=== PATIENT | female | born 1965 | race Caucasian/White ===

== ENCOUNTER 2016-04-04 14:39 | Emergency (ER) | payer OTHER ==
--- NOTE | 2016-04-04 16:21 | DIAGNOSTIC IMAGING REPORT ---
PROCEDURE: XR FOOT 3 VIEWS - LEFT INDICATION: PAIN TECHNIQUE: Three views. COMPARISON: None. FINDINGS: Osseous structures and joint spaces are normal. IMPRESSION: 1. Normal left foot.
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
--- NOTE | 2016-04-04 16:28 | ED ORDER SUMMARY ---
..... Patient: SANAM DONALDSON OrderSheet [facility] VisitID: [id number] [address] [place] [address] 51y, F Registration Date/Time: 04/04/2016 ORDER SHEET Weight: 63.5 kg (stated) Allergies: Naproxen GENERAL ORDERS: Foot 3V Left Urgent (15:32 04/04/2016 HBivens A.R.N.P.) ([facility] 15:35 LTapper) MEDICATION ORDERS: Ultram PO 50 mg (NOW) (16:56 04/04/2016 LWhalen R.N. verbal order read back to HBivens A.R.N.P.) (16:57 LWhalen R.N.) IV FLUIDS: ORDER SHEET NOTES: [Electronically signed by Kylah Ramos R.N. (18:40 04/04/2016)] [Electronically signed by Leticia Pink A.R.N.P. (18:50 04/04/2016)] [Electronically locked/signed by Kylah Ramos R.N. (18:40 04/04/2016)]
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
--- NOTE | 2016-04-04 16:28 | ED ORDER SUMMARY ---
..... Patient: SANAM DONALDSON OrderSheet [facility] VisitID: [id number] [address] [place] [address] 51y, F Registration Date/Time: 04/04/2016 ORDER SHEET Weight: 63.5 kg (stated) Allergies: Naproxen GENERAL ORDERS: Foot 3V Left Urgent (15:32 04/04/2016 HBivens A.R.N.P.) ([facility] 15:35 LTapper) MEDICATION ORDERS: Ultram PO 50 mg (NOW) (16:56 04/04/2016 LWhalen R.N. verbal order read back to HBivens A.R.N.P.) (16:57 LWhalen R.N.) IV FLUIDS: ORDER SHEET NOTES: [Electronically signed by Kylah Ramos R.N. (18:40 04/04/2016)] [Electronically signed by Leticia Pink A.R.N.P. (18:50 04/04/2016)] [Electronically locked/signed by Kylah Ramos R.N. (18:40 04/04/2016)]
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
--- NOTE | 2016-04-04 18:51 | ED MED RECONCILIATION SUMMARY ---
Patient: SANAM DONALDSON Medication Reconciliation Report [facility] VisitID: [id number] [address] [place] [address] 51y, F Registration Date/Time: 04/04/2016 Weight: 63.5 kg Height/Length: 65 in. BMI: 23.3 ALLERGIES: Naproxen The patient's Home Medications are listed below: NONE. The source(s) of the original Home Medication information: Not obtained. The following Medications were given to the patient in the Emergency Department: Ultram [PO] PO 50 mg, administered: 04/04/2016 4:43:00 PM The following Medications were prescribed to the patient: Cephalexin 500 mg: take 1 capsule orally every 8 hours for 10 days. No refill. -- Leticia Pink, Coy.R.N.P. Ultram 50 mg tablets: take 1-2 orally every 6 hours as needed for pain. Dispense twenty (20). No refills. Substitution is permissible. -- Leticia Pink A.R.N.P.
--- NOTE | 2016-04-04 18:51 | ED MED RECONCILIATION SUMMARY ---
Patient: SANAM DONALDSON Medication Reconciliation Report [facility] VisitID: [id number] [address] [place] [address] 51y, F Registration Date/Time: 04/04/2016 Weight: 63.5 kg Height/Length: 65 in. BMI: 23.3 ALLERGIES: Naproxen The patient's Home Medications are listed below: NONE. The source(s) of the original Home Medication information: Not obtained. The following Medications were given to the patient in the Emergency Department: Ultram [PO] PO 50 mg, administered: 04/04/2016 4:43:00 PM The following Medications were prescribed to the patient: Cephalexin 500 mg: take 1 capsule orally every 8 hours for 10 days. No refill. -- Leticia Pink, Coy.R.N.P. Ultram 50 mg tablets: take 1-2 orally every 6 hours as needed for pain. Dispense twenty (20). No refills. Substitution is permissible. -- Leticia Pink A.R.N.P.
--- NOTE | 2016-04-04 18:51 | ED MAR SUMMARY ---
..... Medication Administration Record [facility] [address] [place] [address] Patient: SANAM DONALDSON Visit ID: [id number] 51y, F Weight: 63.5 kg Height/Length: 65 in BMI: 23.3 ALLERGIES: Naproxen Given 16:43 04/04/2016 Kylah Ramos R.N. Medication Administered: ULTRAM [PO] (TRAMADOL HCL), Dose: 50 mg Tablets PO. Medication Ordered: Ultram PO 50 mg (NOW).
--- NOTE | 2016-04-04 18:51 | ED DISCHARGE INSTRUCTIONS ---
Patient: SANAM DONALDSON General Instructions [facility] VisitID: [id number] [place] [address] 51y, F Registration Date/Time: 04/04/2016 Cellulitis of the left foot. No foreign body present. INSTRUCTIONS Warnings: GENERAL WARNINGS: Return or contact your physician immediately if your condition worsens or changes unexpectedly, if not improving as expected, or if other problems arise. Specifically return if problem worsens. Prescription Medications: Cephalexin 500 mg: take 1 capsule orally every 8 hours for 10 days. No refill. Ultram 50 mg tablets: take 1-2 orally every 6 hours as needed for pain. Dispense twenty (20). No refills. Substitution is permissible. Follow-up: Follow up with your doctor in about three days even if well. Call for an appointment. Summary of care provided to patient. Understanding of the discharge instructions verbalized by patient. ADDITIONAL INFORMATION Cellulitis You have an infection of the skin known as cellulitis. This usually starts with a scrape, cut, insect bite, blister or other opening in the skin which becomes infected. This is a serious condition. It must be watched closely to be sure the infection is not spreading. With antibiotic treatment, the size of the red area will gradually shrink in size until the skin returns to normal. This will take 7-10 days. The red area should never increase in size once the antibiotic medicine has been started. Occasionally, an infection will be resistant to one antibiotic and another one will have to be used. Home Care: 1) Limit the use of the affected part, since excess movement can cause the infection to spread. 2) If the infection is on your leg, walk as little as possible during the first few days of the treatment. Keep your leg elevated while sitting. This will reduce swelling. 3) Take all of the antibiotic medicine exactly as directed until it is gone. Be careful not to miss any doses, especially during the first seven days. Follow Up with your doctor or this facility as directed. Check the infected area daily for the warning signs listed below. Get Prompt Medical Attention if any of the following occur: -- Spreading area of redness -- Increasing swelling or pain -- Appearance of pus or drainage -- Fever over 100.4 F (38.0 C) oral, or over 101.4 F (38.6 C) rectal, after two days on antibiotics Staph Infection (MRSA) "Staph" is the short name for the common bacteria called "staphylococcus aureus". Staph bacteria are often present on the skin without causing an infection. If it gets under the skin an infection occurs. This causes redness, tenderness, swelling and sometimes fluid drainage. MRSA stands for "Methicillin-Resistant Staph Aureus". Unlike a common staph infection, MRSA bacteria are resistant to the usual antibiotics and harder to treat. Also, MRSA is more toxic than common staph bacteria. It can spread quickly throughout the body and cause a life-threatening illness. MRSA is spread to others by direct physical contact with the bacteria. MRSA can also be transmitted from items contaminated by a person who has the bacteria, such as bandages, towels, bed sheets, or sports equipment. It is not spread through the air. Once you have a MRSA skin infection, you are at risk of having it recur in the future. If MRSA infection is suspected, the doctor may take a wound culture to confirm the diagnosis. Any abscess will be drained. One or sometimes two antibiotics that work against MRSA will be prescribed. Home Care: 1) Take any antibiotics prescribed exactly as directed until they are gone. 2) Follow the same washing procedures as outlined for Household Members below. 3) Keep draining wounds covered with clean, dry bandages. Change dressings as they become soiled. 4) You and those in contact with you should wash their hands frequently with soap and warm water or use an alcohol-based hand eyewear manufacturing tech. Do this after each time you change the bandage or touch the wound. 5) Avoid sharing personal items such as towels, washcloths, razors, clothing, or uniforms. Wash soiled sheets, towels or clothes in hot water with laundry detergent. Use an automatic clothes dryer set on high to kill any remaining bacteria. 6) Remove any artificial nails and nail mohawk. 7) If you use a gym, wipe down equipment before and after each use. Treatment Of Household Members If you have been diagnosed with possible MRSA infection, those living with you are at higher risk of carrying the bacteria on their skin or in their nose, even if there is no sign of infection. Bacteria must be removed from the skin of all household members (including you) at the same time, so that it is not passed back and forth. Advise them to remove the bacteria as follows: Wash your whole body (scalp to toes) daily for five days with Hibiclens (chlorhexidine). Scrub fingernails with a brush for one minute twice a day. If any skin infections are present (boils, abscess, infected cut) these must be treated by a doctor. Washing alone will not treat a MRSA infection. Clean counter tops and children's toys; do not share personal items such as toothbrush and razors. It is okay to share glasses, plates, utensils. If antibiotic ointment was prescribed use it as directed. Follow Up with your doctor or as advised by our staff. If a wound culture was taken, call as directed in two days to obtain the results. If the culture result is positive for MRSA, tell medical personnel in the future that you were treated for this type of infection. Get Prompt Medical Attention if any of the following occur: -- Increasing redness, swelling or pain -- Red streaks in the skin around the wound -- Weakness or dizziness -- New appearance of pus or drainage from the wound -- New fever over 100.4 F (38.0 C) Cephalexin Monohydrate Oral tablet What is this medicine? CEPHALEXIN (sef a LIBRA in) is a cephalosporin antibiotic. It is used to treat certain kinds of bacterial infections It will not work for colds, flu, or other viral infections. How should I use this medicine? Take this medicine by mouth with a full glass of water. Follow the directions on the prescription label. This medicine can be taken with or without food. Take your medicine at regular intervals. Do not take your medicine more often than directed. Take all of your medicine as directed even if you think you are better. Do not skip doses or stop your medicine early. Talk to your music pastor regarding the use of this medicine in children. While this drug may be prescribed for selected conditions, precautions do apply. What side effects may I notice from receiving this medicine? Side effects that you should report to your doctor or health associate director career services as soon as possible: allergic reactions like skin rash, itching or hives, swelling of the face, lips, or tongue breathing problems pain or trouble passing urine redness, blistering, peeling or loosening of the skin, including inside the mouth severe or watery diarrhea unusually weak or tired yellowing of the eyes, skin Side effects that usually do not require medical attention (report to your doctor or health associate director career services if they continue or are bothersome): gas or heartburn genital or anal irritation headache joint or muscle pain nausea, vomiting What may interact with this medicine? probenecid some other antibiotics What if I miss a dose? If you miss a dose, take it as soon as you can. If it is almost time for your next dose, take only that dose. Do not take double or extra doses. There should be at least 4 to 6 hours between doses. Where should I keep my medicine? Keep out of the reach of children. Store at room temperature between 59 and 86 degrees F (15 and 30 degrees C). Throw away any unused medicine after the expiration date. What should I tell my health care provider before I take this medicine? They need to know if you have any of these conditions: kidney disease stomach or intestine problems, especially colitis an unusual or allergic reaction to cephalexin, other cephalosporins, penicillins, other antibiotics, medicines, foods, dyes or preservatives or trying to get breast-feeding What should I watch for while using this medicine? Tell your doctor or health associate director career services if your symptoms do not begin to improve in a few days. Do not treat diarrhea with over the counter products. Contact your doctor if you have diarrhea that lasts more than 2 days or if it is severe and watery. If you have diabetes, you may get a false-positive result for sugar in your urine. Check with your doctor or health associate director career services. Tramadol Hydrochloride Oral tablet What is this medicine? TRAMADOL (TRA ma dole) is a pain reliever. It is used to treat moderate to severe pain in adults. How should I use this medicine? Take this medicine by mouth with a full glass of water. Follow the directions on the prescription label. If the medicine upsets your stomach, take it with food or milk. Do not take more medicine than you are told to take. Talk to your music pastor regarding the use of this medicine in children. Special care may be needed. What side effects may I notice from receiving this medicine? Side effects that you should report to your doctor or health associate director career services as soon as possible: allergic reactions like skin rash, itching or hives, swelling of the face, lips, or tongue breathing difficulties, wheezing confusion itching light headedness or fainting spells redness, blistering, peeling or loosening of the skin, including inside the mouth seizures Side effects that usually do not require medical attention (report to your doctor or health associate director career services if they continue or are bothersome): constipation dizziness drowsiness headache nausea, vomiting What may interact with this medicine? Do not take this medicine with any of the following medications: MAOIs like Carbex, Eldepryl, Marplan, Nardil, and Parnate This medicine may also interact with the following medications: alcohol or medicines that contain alcohol antihistamines benzodiazepines bupropion carbamazepine or oxcarbazepine clozapine cyclobenzaprine digoxin furazolidone linezolid medicines for depression, anxiety, or psychotic disturbances medicines for migraine headache like almotriptan, eletriptan, frovatriptan, naratriptan, rizatriptan, sumatriptan, zolmitriptan medicines for pain like pentazocine, buprenorphine, butorphanol, meperidine, nalbuphine, and propoxyphene medicines for sleep muscle relaxants naltrexone phenobarbital phenothiazines like perphenazine, thioridazine, chlorpromazine, mesoridazine, fluphenazine, prochlorperazine, promazine, and trifluoperazine procarbazine warfarin What if I miss a dose? If you miss a dose, take it as soon as you can. If it is almost time for your next dose, take only that dose. Do not take double or extra doses. Where should I keep my medicine? Keep out of the reach of children. Store at room temperature between 15 and 30 degrees C (59 and 86 degrees F). Keep container tightly closed. Throw away any unused medicine after the expiration date. What should I tell my health care provider before I take this medicine? They need to know if you have any of these conditions: brain tumor depression drug abuse or addiction head injury if you frequently drink alcohol containing drinks kidney disease or trouble passing urine liver disease lung disease, asthma, or breathing problems seizures or epilepsy suicidal thoughts, plans, or attempt; a previous suicide attempt by you or a family member an unusual or allergic reaction to tramadol, codeine, other medicines, foods, dyes, or preservatives or trying to get breast-feeding What should I watch for while using this medicine? Tell your doctor or health associate director career services if your pain does not go away, if it gets worse, or if you have new or a different type of pain. You may develop tolerance to the medicine. Tolerance means that you will need a higher dose of the medicine for pain relief. Tolerance is normal and is expected if you take this medicine for a long time. Do not suddenly stop taking your medicine because you may develop a severe reaction. Your body becomes used to the medicine. This does NOT mean you are addicted. Addiction is a behavior related to getting and using a drug for a non-medical reason. If you have pain, you have a medical reason to take pain medicine. Your doctor will tell you how much medicine to take. If your doctor wants you to stop the medicine, the dose will be slowly lowered over time to avoid any side effects. You may get drowsy or dizzy. Do not drive, use machinery, or do anything that needs mental alertness until you know how this medicine affects you. Do not stand or sit up quickly, especially if you are an older patient. This reduces the risk of dizzy or fainting spells. Alcohol can increase or decrease the effects of this medicine. Avoid alcoholic drinks. You may have constipation. Try to have a bowel movement at least every 2 to 3 days. If you do not have a bowel movement for 3 days, call your doctor or health associate director career services. Your mouth may get dry. Chewing sugarless gum or sucking hard candy, and drinking plenty of water may help. Contact your doctor if the problem does not go away or is severe. You have been given the following additional information: Cellulitis MRSA Skin Infection, Suspected Or Confirmed Cephalexin Monohydrate Oral tablet Tramadol Hydrochloride Oral tablet (Electronically signed by Leticia Pink A.R.N.P. 04/04/2016 18:50)
--- NOTE | 2016-04-04 18:51 | ED DISCHARGE INSTRUCTIONS ---
Patient: SANAM DONALDSON General Instructions [facility] VisitID: [id number] [place] [address] 51y, F Registration Date/Time: 04/04/2016 Cellulitis of the left foot. No foreign body present. INSTRUCTIONS Warnings: GENERAL WARNINGS: Return or contact your physician immediately if your condition worsens or changes unexpectedly, if not improving as expected, or if other problems arise. Specifically return if problem worsens. Prescription Medications: Cephalexin 500 mg: take 1 capsule orally every 8 hours for 10 days. No refill. Ultram 50 mg tablets: take 1-2 orally every 6 hours as needed for pain. Dispense twenty (20). No refills. Substitution is permissible. Follow-up: Follow up with your doctor in about three days even if well. Call for an appointment. Summary of care provided to patient. Understanding of the discharge instructions verbalized by patient. ADDITIONAL INFORMATION Cellulitis You have an infection of the skin known as cellulitis. This usually starts with a scrape, cut, insect bite, blister or other opening in the skin which becomes infected. This is a serious condition. It must be watched closely to be sure the infection is not spreading. With antibiotic treatment, the size of the red area will gradually shrink in size until the skin returns to normal. This will take 7-10 days. The red area should never increase in size once the antibiotic medicine has been started. Occasionally, an infection will be resistant to one antibiotic and another one will have to be used. Home Care: 1) Limit the use of the affected part, since excess movement can cause the infection to spread. 2) If the infection is on your leg, walk as little as possible during the first few days of the treatment. Keep your leg elevated while sitting. This will reduce swelling. 3) Take all of the antibiotic medicine exactly as directed until it is gone. Be careful not to miss any doses, especially during the first seven days. Follow Up with your doctor or this facility as directed. Check the infected area daily for the warning signs listed below. Get Prompt Medical Attention if any of the following occur: -- Spreading area of redness -- Increasing swelling or pain -- Appearance of pus or drainage -- Fever over 100.4 F (38.0 C) oral, or over 101.4 F (38.6 C) rectal, after two days on antibiotics Staph Infection (MRSA) "Staph" is the short name for the common bacteria called "staphylococcus aureus". Staph bacteria are often present on the skin without causing an infection. If it gets under the skin an infection occurs. This causes redness, tenderness, swelling and sometimes fluid drainage. MRSA stands for "Methicillin-Resistant Staph Aureus". Unlike a common staph infection, MRSA bacteria are resistant to the usual antibiotics and harder to treat. Also, MRSA is more toxic than common staph bacteria. It can spread quickly throughout the body and cause a life-threatening illness. MRSA is spread to others by direct physical contact with the bacteria. MRSA can also be transmitted from items contaminated by a person who has the bacteria, such as bandages, towels, bed sheets, or sports equipment. It is not spread through the air. Once you have a MRSA skin infection, you are at risk of having it recur in the future. If MRSA infection is suspected, the doctor may take a wound culture to confirm the diagnosis. Any abscess will be drained. One or sometimes two antibiotics that work against MRSA will be prescribed. Home Care: 1) Take any antibiotics prescribed exactly as directed until they are gone. 2) Follow the same washing procedures as outlined for Household Members below. 3) Keep draining wounds covered with clean, dry bandages. Change dressings as they become soiled. 4) You and those in contact with you should wash their hands frequently with soap and warm water or use an alcohol-based hand strategic planning specialist. Do this after each time you change the bandage or touch the wound. 5) Avoid sharing personal items such as towels, washcloths, razors, clothing, or uniforms. Wash soiled sheets, towels or clothes in hot water with laundry detergent. Use an automatic clothes dryer set on high to kill any remaining bacteria. 6) Remove any artificial nails and nail french. 7) If you use a gym, wipe down equipment before and after each use. Treatment Of Household Members If you have been diagnosed with possible MRSA infection, those living with you are at higher risk of carrying the bacteria on their skin or in their nose, even if there is no sign of infection. Bacteria must be removed from the skin of all household members (including you) at the same time, so that it is not passed back and forth. Advise them to remove the bacteria as follows: Wash your whole body (scalp to toes) daily for five days with Hibiclens (chlorhexidine). Scrub fingernails with a brush for one minute twice a day. If any skin infections are present (boils, abscess, infected cut) these must be treated by a doctor. Washing alone will not treat a MRSA infection. Clean counter tops and children's toys; do not share personal items such as toothbrush and razors. It is okay to share glasses, plates, utensils. If antibiotic ointment was prescribed use it as directed. Follow Up with your doctor or as advised by our staff. If a wound culture was taken, call as directed in two days to obtain the results. If the culture result is positive for MRSA, tell medical personnel in the future that you were treated for this type of infection. Get Prompt Medical Attention if any of the following occur: -- Increasing redness, swelling or pain -- Red streaks in the skin around the wound -- Weakness or dizziness -- New appearance of pus or drainage from the wound -- New fever over 100.4 F (38.0 C) Cephalexin Monohydrate Oral tablet What is this medicine? CEPHALEXIN (sef a LIBRA in) is a cephalosporin antibiotic. It is used to treat certain kinds of bacterial infections It will not work for colds, flu, or other viral infections. How should I use this medicine? Take this medicine by mouth with a full glass of water. Follow the directions on the prescription label. This medicine can be taken with or without food. Take your medicine at regular intervals. Do not take your medicine more often than directed. Take all of your medicine as directed even if you think you are better. Do not skip doses or stop your medicine early. Talk to your compensation and benefits manager regarding the use of this medicine in children. While this drug may be prescribed for selected conditions, precautions do apply. What side effects may I notice from receiving this medicine? Side effects that you should report to your doctor or health healthcare network consultant as soon as possible: allergic reactions like skin rash, itching or hives, swelling of the face, lips, or tongue breathing problems pain or trouble passing urine redness, blistering, peeling or loosening of the skin, including inside the mouth severe or watery diarrhea unusually weak or tired yellowing of the eyes, skin Side effects that usually do not require medical attention (report to your doctor or health healthcare network consultant if they continue or are bothersome): gas or heartburn genital or anal irritation headache joint or muscle pain nausea, vomiting What may interact with this medicine? probenecid some other antibiotics What if I miss a dose? If you miss a dose, take it as soon as you can. If it is almost time for your next dose, take only that dose. Do not take double or extra doses. There should be at least 4 to 6 hours between doses. Where should I keep my medicine? Keep out of the reach of children. Store at room temperature between 59 and 86 degrees F (15 and 30 degrees C). Throw away any unused medicine after the expiration date. What should I tell my health care provider before I take this medicine? They need to know if you have any of these conditions: kidney disease stomach or intestine problems, especially colitis an unusual or allergic reaction to cephalexin, other cephalosporins, penicillins, other antibiotics, medicines, foods, dyes or preservatives or trying to get breast-feeding What should I watch for while using this medicine? Tell your doctor or health healthcare network consultant if your symptoms do not begin to improve in a few days. Do not treat diarrhea with over the counter products. Contact your doctor if you have diarrhea that lasts more than 2 days or if it is severe and watery. If you have diabetes, you may get a false-positive result for sugar in your urine. Check with your doctor or health healthcare network consultant. Tramadol Hydrochloride Oral tablet What is this medicine? TRAMADOL (TRA ma dole) is a pain reliever. It is used to treat moderate to severe pain in adults. How should I use this medicine? Take this medicine by mouth with a full glass of water. Follow the directions on the prescription label. If the medicine upsets your stomach, take it with food or milk. Do not take more medicine than you are told to take. Talk to your compensation and benefits manager regarding the use of this medicine in children. Special care may be needed. What side effects may I notice from receiving this medicine? Side effects that you should report to your doctor or health healthcare network consultant as soon as possible: allergic reactions like skin rash, itching or hives, swelling of the face, lips, or tongue breathing difficulties, wheezing confusion itching light headedness or fainting spells redness, blistering, peeling or loosening of the skin, including inside the mouth seizures Side effects that usually do not require medical attention (report to your doctor or health healthcare network consultant if they continue or are bothersome): constipation dizziness drowsiness headache nausea, vomiting What may interact with this medicine? Do not take this medicine with any of the following medications: MAOIs like Carbex, Eldepryl, Marplan, Nardil, and Parnate This medicine may also interact with the following medications: alcohol or medicines that contain alcohol antihistamines benzodiazepines bupropion carbamazepine or oxcarbazepine clozapine cyclobenzaprine digoxin furazolidone linezolid medicines for depression, anxiety, or psychotic disturbances medicines for migraine headache like almotriptan, eletriptan, frovatriptan, naratriptan, rizatriptan, sumatriptan, zolmitriptan medicines for pain like pentazocine, buprenorphine, butorphanol, meperidine, nalbuphine, and propoxyphene medicines for sleep muscle relaxants naltrexone phenobarbital phenothiazines like perphenazine, thioridazine, chlorpromazine, mesoridazine, fluphenazine, prochlorperazine, promazine, and trifluoperazine procarbazine warfarin What if I miss a dose? If you miss a dose, take it as soon as you can. If it is almost time for your next dose, take only that dose. Do not take double or extra doses. Where should I keep my medicine? Keep out of the reach of children. Store at room temperature between 15 and 30 degrees C (59 and 86 degrees F). Keep container tightly closed. Throw away any unused medicine after the expiration date. What should I tell my health care provider before I take this medicine? They need to know if you have any of these conditions: brain tumor depression drug abuse or addiction head injury if you frequently drink alcohol containing drinks kidney disease or trouble passing urine liver disease lung disease, asthma, or breathing problems seizures or epilepsy suicidal thoughts, plans, or attempt; a previous suicide attempt by you or a family member an unusual or allergic reaction to tramadol, codeine, other medicines, foods, dyes, or preservatives or trying to get breast-feeding What should I watch for while using this medicine? Tell your doctor or health healthcare network consultant if your pain does not go away, if it gets worse, or if you have new or a different type of pain. You may develop tolerance to the medicine. Tolerance means that you will need a higher dose of the medicine for pain relief. Tolerance is normal and is expected if you take this medicine for a long time. Do not suddenly stop taking your medicine because you may develop a severe reaction. Your body becomes used to the medicine. This does NOT mean you are addicted. Addiction is a behavior related to getting and using a drug for a non-medical reason. If you have pain, you have a medical reason to take pain medicine. Your doctor will tell you how much medicine to take. If your doctor wants you to stop the medicine, the dose will be slowly lowered over time to avoid any side effects. You may get drowsy or dizzy. Do not drive, use machinery, or do anything that needs mental alertness until you know how this medicine affects you. Do not stand or sit up quickly, especially if you are an older patient. This reduces the risk of dizzy or fainting spells. Alcohol can increase or decrease the effects of this medicine. Avoid alcoholic drinks. You may have constipation. Try to have a bowel movement at least every 2 to 3 days. If you do not have a bowel movement for 3 days, call your doctor or health healthcare network consultant. Your mouth may get dry. Chewing sugarless gum or sucking hard candy, and drinking plenty of water may help. Contact your doctor if the problem does not go away or is severe. You have been given the following additional information: Cellulitis MRSA Skin Infection, Suspected Or Confirmed Cephalexin Monohydrate Oral tablet Tramadol Hydrochloride Oral tablet (Electronically signed by Leticia Pink A.R.N.P. 04/04/2016 18:50)
--- NOTE | 2016-04-04 18:51 | ED MAR SUMMARY ---
..... Medication Administration Record [facility] [address] [place] [address] Patient: SANAM DONALDSON Visit ID: [id number] 51y, F Weight: 63.5 kg Height/Length: 65 in BMI: 23.3 ALLERGIES: Naproxen Given 16:43 04/04/2016 Kylah Ramos R.N. Medication Administered: ULTRAM [PO] (TRAMADOL HCL), Dose: 50 mg Tablets PO. Medication Ordered: Ultram PO 50 mg (NOW).
== END 2016-04-04 16:48 | disposition home or self-care (01) ==
LOC: ED SRH 14:39
DX: L03.116 Cellulitis of left lower limb (principal); F17.210 Nicotine dependence, cigarettes, uncomplicated; Z86.73 Personal history of transient ischemic attack (TIA), and cerebral infarction without residual deficits